=== PATIENT | female | born 1990 | race Caucasian/White ===

== ENCOUNTER 2025-08-31 19:42 | Emergency (ER) | payer BC ==
[~2025-08-31] VITALS: Ht 162.6 cm; Wt 52.6 kg
[2025-08-31 21:23] VITALS: BP 113/79; O2SAT 99
[2025-08-31 23:17] LABS: BASO % 0.4 % (0.1-1.2); EOS # 0.15 (0.04-0.54); EOS % 1.3 % (0.7-7.0); LYMPH # 2.75 (1.18-3.74); LYMPH % 24.4 % (19.3-53.1); MEAN PLATELET VOLUME 10.80 fl (9.4-12.4); MONO # 0.93 (0.24-0.82); MONO % 8.2 % (4.7-12.5); NEUT # 7.37 (1.56-6.13); NEUT % 65.4 % (34.0-71.1); RED CELL DISTRIBUTION WIDTH 12.1 % (11.6-14.4)
[2025-08-31 23:55] LABS: BUN CREA RATIO 14.0 (7.0-25.0); CREATININE SERUM 0.56 mg/dL (0.55-1.02); GFR 124.67; GLUCOSE FASTING 89.0 mg/dL (65-100); OSMOLALITY SERUM 277.0 MOSM/KG (275-295)
[2025-09-01 00:56] LABS: URINE APPEARANCE Clear; URINE BILIRRUBIN Negative (NEGATIVE); URINE BLOOD Moderate; URINE COLOR Yellow; URINE GLUCOSE Negative (NEGATIVE); URINE LEUKOCYTE Negative; URINE NITRATE Negative; URINE PROTEIN Negative (NEGATIVE); URINE UROBILINOGEN 0.2 E.U./dl
[2025-09-01 00:59] LABS: URINE BACTERIA 498.0 uL (0.0-1933); URINE EPITHELIAL CELLS 12.4 uL (0.0-38.8); URINE RBC 14.6 uL (0.0-20.8); URINE WBC 8.6 uL (0.0-23.2)
[2025-09-01 01:01] LABS: URINE CAST 0.00 uL (0.0-1.40); URINE KETONE >=160 (NEGATIVE)
[2025-09-01 03:14] LABS: INR 1.16
== END 2025-09-01 05:47 ==
LOC: ER 19:42
PROVIDERS: General Practice
DX: O20.8 Other hemorrhage in early pregnancy (principal); Z3A.01 Less than 8 weeks gestation of pregnancy; Z88.0 Allergy status to penicillin